=== PATIENT | female | born 1990 | race Caucasian/White ===

== ENCOUNTER 2017-12-06 00:24 | Emergency (ER) | payer BC ==
[2017-12-06] MEDS ORDERED: NACL 0.9% 1000 ML 1,000 ML IV ONE ×2 (00:49→01:52)
[2017-12-06] MEDS ORDERED: ASPIRIN PO ONE (00:49)
[2017-12-06 01:32] LABS: Hemoglobin 11.4 gm/dl (10.1-14.3); Mean Corpuscular HGB Conc 33 % (30-34); Mean Corpuscular Volume 79 fl (79-97); Platelet Count 236 K/mm3 (140-440); Red Blood Count 4.41 M/mm3 (3.65-5.03)
[2017-12-06] MEDS ORDERED: ZOFRAN ONE (01:32)
[2017-12-06] MEDS ORDERED: MORPHINE IV ONE (01:35)
[2017-12-06] MEDS ORDERED: ZOFRAN IV ONE (01:35)
--- NOTE | 2017-12-06 01:38 | Emergency Department Report ---
ED Abdominal Pain HPI - General Chief Complaint: Nausea/Vomiting/Diarrhea Stated Complaint: ABD PAIN Time Seen by Provider: 12/06/17 01:21 Source: patient, EMS Mode of arrival: Wheelchair Limitations: Other - History of Present Illness Initial Comments: Patient is 27 years old female with no significant past medical history. Patient presented to the ER complaining of abdominal pain, diffuse in nature, sharp does not radiate. Patient stated that pain radiated to her chest. Patient stated that she was drinking last night and she was doing a lot of dry heaving's. Pain associated with nausea and vomiting. she also report fever. Patient denied any diarrhea. MD Complaint: abdominal pain Location: diffuse Radiation: none Migration to: no migration Severity: moderate Quality: sharp Improves With: nothing - Related Data Allergies Allergy/AdvReac Type Severity Reaction Status Date / Time oxycodone Allergy Vomiting Verified 12/06/17 00:49 ED Review of Systems ROS: Stated complaint: ABD PAIN Other details as noted in HPI Comment: All other systems reviewed and negative Constitutional: denies: chills, fever Cardiovascular: denies: chest pain, palpitations, dyspnea on exertion Gastrointestinal: abdominal pain, nausea, vomiting. denies: diarrhea, constipation, hematemesis, melena, hematochezia Genitourinary: denies: urgency, dysuria Neurological: denies: headache, weakness, numbness, paresthesias, confusion ED Past Medical Hx - Past Medical History Previous Medical History?: Yes Additional medical history: ovarian cyst. c-diff - Surgical History Past Surgical History?: Yes Hx Cholecystectomy: Yes - Social History Smoking Status: Never Smoker Substance Use Type: None ED Physical Exam - General Limitations: No Limitations, Other General appearance: alert - Head Head exam: Present: atraumatic, normocephalic, normal inspection - Eye Eye exam: Present: normal appearance, PERRL - ENT ENT exam: Present: normal exam, normal orophraynx, mucous membranes dry - Neck Neck exam: Present: normal inspection, full ROM. Absent: tenderness, meningismus, lymphadenopathy, thyromegaly - Respiratory Respiratory exam: Present: normal lung sounds bilaterally. Absent: respiratory distress, wheezes, rales, rhonchi, chest wall tenderness, accessory muscle use, decreased breath sounds, prolonged expiratory - Cardiovascular Cardiovascular Exam: Present: regular rate, normal rhythm, normal heart sounds - GI/Abdominal GI/Abdominal exam: Present: soft, tenderness, normal bowel sounds. Absent: distended, guarding, rebound, rigid, diminished bowel sounds, organomegaly, mass , bruit, pulsatile mass - Extremities Exam Extremities exam: Present: normal inspection, full ROM, normal capillary refill. Absent: tenderness, pedal edema, joint swelling, calf tenderness - Back Exam Back exam: Present: normal inspection, full ROM. Absent: tenderness, CVA tenderness (R), CVA tenderness (L), muscle spasm, paraspinal tenderness, vertebral tenderness, rash noted - Neurological Exam Neurological exam: Present: alert, oriented X3, CN II-XII intact, normal gait, reflexes normal - Skin Skin exam: Present: warm, intact, normal color ED Course Vital Signs 12/06/17 00:42 Temperature 100.5 F H Pulse Rate 95 H Respiratory 18 Rate Blood Pressure 112/83 O2 Sat by Pulse 100 Oximetry - Reevaluation(s) Reevaluation #1: 12/06/17 04:37 I discussed the patient with [facility] to speak with a cardiothoracic surgeon. They stated that they'll call me back. ED Medical Decision Making - Lab Data Result diagrams: 12/06/17 01:00 12/06/17 01:00 - EKG Data -: EKG Interpreted by Ct EKG shows normal: sinus rhythm Rate: normal - EKG Data Interpretation: no acute changes - Radiology Data Radiology results: report reviewed Referring Physician: SUELLEN GUZMAN Patient Name: PEPITO BAJWA Date of : 1990 Sex: Female Report Date: 2017-12-06 Report Status: [place] [address] Cat Scan Report Signed Patient: PEPITO BAJWA MR#: [id number] : 1990 Acct:[id number] Age/Sex: 27 / F ADM Date: 12/06/17 Loc: ED Attending Dr: Ordering Physician: SUELLEN GUZMAN Date of Service: 12/06/17 Procedure(s): CT chest wo con Accession Number(s): [id number] cc: SUELLEN GUZMAN FINAL REPORT PROCEDURE: CT CHEST WO CON TECHNIQUE: Computerized axial tomography of the chest was performed without contrast material. This study is performed without intravenous contrast and the sensitivity for pathology, including neoplasms, adenopathy, abscess, pulmonary embolism and aortic dissection, is reduced. HISTORY: possible pneumothorax COMPARISON: No prior studies are available for comparison. TECHNICAL QUALITY: Satisfactory. FINDINGS: There is pneumomediastinum. Etiology is uncertain. Possible micro perforation of the soft Shahriar or trachea not excluded. Benign spontaneous pneumomediastinum is also considered. The lungs are clear and expanded. There is no infiltrate, effusion, contusion or pneumothorax. The heart size is normal. The thoracic aorta is normal in caliber. There is no mediastinal or hilar lymphadenopathy. The thoracic spine, sternum and ribs are intact. CT of the abdomen and pelvis was reported separately. IMPRESSION: There is pneumomediastinum. Possible micro perforation of the soft Shahriar or trachea not excluded. Benign spontaneous pneumomediastinum is also considered. The lungs are clear and expanded. There is no infiltrate, effusion, contusion or pneumothorax. The heart size is normal. . Transcribed By: [place] Dictated By: TITUS VALADEZ MD Electronically Authenticated By: TITUS VALADEZ MD Signed Date/Time: 12/06/17 0425 Referring Physician: SUELLEN GUZMAN Patient Name: PEPITO BAJWA Date of : 1990 Sex: Female Report Date: 2017-12-06 Report Status: [place] [address] Cat Scan Report Signed Patient: PEPITO BAJWA MR#: [id number] : 1990 Acct:[id number] Age/Sex: 27 / F ADM Date: 12/06/17 Loc: ED Attending Dr: Ordering Physician: SUELLEN GUZMAN Date of Service: 12/06/17 Procedure(s): CT abdomen pelvis w con Accession Number(s): [id number] cc: SUELLEN GUZMAN FINAL REPORT PROCEDURE: CT ABDOMEN PELVIS W CON TECHNIQUE: Computerized axial tomography of the abdomen and pelvis was performed after the IV injection of iodinated nonionic contrast. HISTORY: abdominal pain COMPARISON: No prior studies are available for comparison. FINDINGS: Visualized lower thorax: There is left extrapleural air along the medial basilar aspect of the left lung base. Pneumothorax or pneumomediastinum considered. Further evaluation with CT of the chest recommended.. Liver: Normal size and attenuation. Spleen: Normal size and attenuation. Gallbladder and biliary system: There has been a cholecystectomy. There is pneumobilia.. Pancreas: Normal. Adrenals: Normal. Kidneys: Normal. GI tract: Normal. Lymph nodes and mesentery: Normal. Vasculature: Normal. Bladder: Normal. Reproductive organs: Uterus is unremarkable. There is a 15 millimeter involuting cyst in the right ovary.. Peritoneum: There is moderate free pelvic fluid. There is no free air. There is no abscess or adenopathy.. Musculoskeletal structures: No significant abnormality. Other: None. IMPRESSION: There is left extrapleural air along the medial basilar aspect of the left lung base. Pneumothorax or pneumomediastinum considered. Further evaluation with CT of the chest recommended.. There has been a cholecystectomy. There is pneumobilia.. Uterus is unremarkable. There is a 15 millimeter involuting cyst in the right ovary.. There is moderate free pelvic fluid. There is no free air. There is no abscess or adenopathy.. Dr. Guzman was notified by telephone at 3:45 a.m. Eastern. Transcribed By: CO Dictated By: TITUS VALADEZ MD Electronically Authenticated By: TITUS VALADEZ MD Signed Date/Time: 12/06/17345 DD/ 5 TD/TT: 12/06/17345 DD/ 4 TD/TT: 12/06/17424 - Medical Decision Making Patient is 27 years old female with no significant past medical history. Patient presented to the ER complaining of abdominal pain, diffuse in nature, sharp does not radiate. Patient stated that pain radiated to her chest. Patient stated that she was drinking last night and she was doing a lot of dry heaving's. Pain associated with nausea and vomiting. she also report fever. Patient denied any diarrhea. Patient received normal saline, morphine and Dilaudid of pain and Zofran for vomiting. CT chest showed a pneumomediastinum was possible perforation to esophagus and trachea. I discussed the patient is Dr. Kramer from [facility] who accepted the patient transfer. Patient will be transferred in stable condition. Critical Care Time: Yes Critical care time in (mins) excluding proc time.: 45 Critical care attestation.: If time is entered above; I have spent that time in minutes in the direct care of this critically ill patient, excluding procedure time. ED Disposition Clinical Impression: Chest pain, Abdominal pain, Pneumomediastinum Disposition: DC/TX-70 ANOTHER TYPE HLTHCARE Is pt being admited?: No Condition: Stable Instructions: Chest Pain (ED) Referrals: PRIMARY CARE, [Primary Care Provider] - 3-5 Days
[2017-12-06 01:39] LABS: Mean Corpuscular Hemoglobin 26 pg (28-32)
[2017-12-06 01:49] LABS: Alanine Aminotransferase 17 units/L (7-56); Albumin 5.1 g/dL (3.9-5); BUN/Creatinine Ratio 16; Blood Urea Nitrogen 13 mg/dL (7-17); Calcium 9.9 mg/dL (8.4-10.2); Hemolysis Index 1; Lipase 14 units/L (13-60)
[2017-12-06] MEDS: ZOFRAN IV ONE ×2 (01:50→01:51)
[2017-12-06] MEDS ORDERED: ZOSYN/NS 3.375GM/50ML 3.375 GM/50 ML BAG IV SCH (03:00)
[2017-12-06 03:28] LABS: Band Neutrophils # (Manual) 0.3 K/mm3; Basophils % (Manual) 0 % (0.0-1.8); Eosinophils % (Manual) 0 % (0.0-4.3); Total Cells Counted 100
[2017-12-06 03:29] LABS: Hypochromasia 1+; Platelet Estimate Consistent w Auto
--- NOTE | 2017-12-06 03:47 | Cat Scan Report ---
FINAL REPORT PROCEDURE: CT ABDOMEN PELVIS W CON TECHNIQUE: Computerized axial tomography of the abdomen and pelvis was performed after the IV injection of iodinated nonionic contrast. HISTORY: abdominal pain COMPARISON: No prior studies are available for comparison. FINDINGS: Visualized lower thorax: There is left extrapleural air along the medial basilar aspect of the left lung base. Pneumothorax or pneumomediastinum considered. Further evaluation with CT of the chest recommended.. Liver: Normal size and attenuation. Spleen: Normal size and attenuation. Gallbladder and biliary system: There has been a cholecystectomy. There is pneumobilia.. Pancreas: Normal. Adrenals: Normal. Kidneys: Normal. GI tract: Normal. Lymph nodes and mesentery: Normal. Vasculature: Normal. Bladder: Normal. Reproductive organs: Uterus is unremarkable. There is a 15 millimeter involuting cyst in the right ovary.. Peritoneum: There is moderate free pelvic fluid. There is no free air. There is no abscess or adenopathy.. Musculoskeletal structures: No significant abnormality. Other: None. IMPRESSION: There is left extrapleural air along the medial basilar aspect of the left lung base. Pneumothorax or pneumomediastinum considered. Further evaluation with CT of the chest recommended.. There has been a cholecystectomy. There is pneumobilia.. Uterus is unremarkable. There is a 15 millimeter involuting cyst in the right ovary.. There is moderate free pelvic fluid. There is no free air. There is no abscess or adenopathy.. Dr. Valdivia was notified by telephone at 3:45 a.m. [facility]
[2017-12-06] MEDS ORDERED: DILAUDID IV ONE (04:21)
--- NOTE | 2017-12-06 04:26 | Cat Scan Report ---
FINAL REPORT PROCEDURE: CT CHEST WO CON TECHNIQUE: Computerized axial tomography of the chest was performed without contrast material. This study is performed without intravenous contrast and the sensitivity for pathology, including neoplasms, adenopathy, abscess, pulmonary embolism and aortic dissection, is reduced. HISTORY: possible pneumothorax COMPARISON: No prior studies are available for comparison. TECHNICAL QUALITY: Satisfactory. FINDINGS: There is pneumomediastinum. Etiology is uncertain. Possible micro perforation of the soft Shahriar or trachea not excluded. Benign spontaneous pneumomediastinum is also considered. The lungs are clear and expanded. There is no infiltrate, effusion, contusion or pneumothorax. The heart size is normal. The thoracic aorta is normal in caliber. There is no mediastinal or hilar lymphadenopathy. The thoracic spine, sternum and ribs are intact. CT of the abdomen and pelvis was reported separately. IMPRESSION: There is pneumomediastinum. Possible micro perforation of the soft Shahriar or trachea not excluded. Benign spontaneous pneumomediastinum is also considered. The lungs are clear and expanded. There is no infiltrate, effusion, contusion or pneumothorax. The heart size is normal. .
[2017-12-06] MEDS ORDERED: DILAUDID ONE (04:27)
[2017-12-06 05:49] VITALS: BP 111/65
== END 2017-12-06 06:36 | disposition other institution (70) ==
LOC: ED 00:24
DX: J98.2 Interstitial emphysema (principal); Z88.5 Allergy status to narcotic agent; Z90.49 Acquired absence of other specified parts of digestive tract
CPT/HCPCS: 36415; 71250; 74177; 80053; 83690; 84484; 84703; 85007; 85025; 93005; 93010; 96361; 96365; 96375; 99291; J1170; J2270; J2405; J2543; J7030; Q9967

== ENCOUNTER 2017-12-22 14:47 | Emergency (ER) | payer BC ==
[2017-12-22] MEDS ORDERED: MORPHINE IV ONE (15:39)
[2017-12-22] MEDS: ZOFRAN IV ONE ×2 (15:41→15:44)
[2017-12-22] MEDS ORDERED: NACL 0.9% 1000 ML 1,000 ML IV ONE (15:45)
--- NOTE | 2017-12-22 16:09 | Emergency Department Report ---
HPI - General Chief Complaint: Abdominal Pain Time Seen by Provider: 12/22/17 15:21 - HPI HPI: 27-year-old female presents to the emergency department via EMS from home with complaint of a 2 day history of nausea, vomiting, abdominal and lower chest discomfort. The patient was here about 2 weeks ago for similar symptoms and was found to have a questionable pneumomediastinum with questionable small perforation from the esophagus. At that time she was transferred to [facility] to see the cardiothoracic surgery. She is unable to tell me what transpired after going to [place]. She has a history of ovarian cyst, previous C. difficile, and a previous cholecystectomy. She has not taken anything for her symptoms prior to arrival. ED Past Medical Hx - Past Medical History Additional medical history: ovarian cyst. c-diff - Surgical History Hx Cholecystectomy: Yes - Social History Smoking Status: Current Some Day Smoker Substance Use Type: None - Medications Home Medications: Home Medications Medication Instructions Recorded Confirmed Last Taken Type Metoclopramide [Reglan] 10 mg PO TID PRN #20 tab 12/22/17 Unknown Rx Promethazine [Phenergan] 12.5 mg AZ Q8H PRN #10 supp.rect 12/22/17 Unknown Rx traMADol [Ultram 50 MG tab] 50 mg PO Q6HR PRN #12 tablet 12/22/17 Unknown Rx ED Review of Systems ROS: Stated complaint: ABD PAIN Other details as noted in HPI Comment: All other systems reviewed and negative Constitutional: denies: chills, fever Eyes: denies: eye pain, eye discharge, vision change ENT: denies: ear pain, throat pain Respiratory: denies: cough, shortness of breath, wheezing Cardiovascular: chest pain. denies: palpitations Gastrointestinal: abdominal pain, nausea, vomiting Genitourinary: denies: urgency, dysuria, discharge Musculoskeletal: denies: back pain, joint swelling, arthralgia Skin: denies: rash, lesions Neurological: denies: headache, weakness, paresthesias Physical Exam - Physical Exam Vital Signs: Vital Signs 12/22/17 14:56 Temperature 98.8 F Pulse Rate 96 H Respiratory 20 Rate Blood Pressure 136/74 O2 Sat by Pulse 100 Oximetry ED Course Vital Signs 12/22/17 14:56 Temperature 98.8 F Pulse Rate 96 H Respiratory 20 Rate Blood Pressure 136/74 O2 Sat by Pulse 100 Oximetry ED Medical Decision Making - Lab Data Result diagrams: 12/22/17 15:45 12/22/17 16:10 - EKG Data -: EKG Interpreted by Me EKG shows normal: sinus rhythm, axis, intervals, QRS complexes (Q waves to the septal leads), ST-T waves Rate: normal - EKG Data When compared to previous EKG there are: no significant change Interpretation: unchanged when compared t (12/08/17) - Radiology Data Radiology results: report reviewed, image reviewed interpreted by me: Chest x-ray did not show any pleural effusion, focal consolidation, pneumothorax or obvious pneumonia. This was later confirmed by radiology as to show no signs of pneumomediastinum. Abdominal x-ray shows nonspecific nonobjective bowel gas. EXAM: CT ABDOMEN PELVIS W CON HISTORY: Abd pain TECHNIQUE: Spiral CT scanning of the abdomen and pelvis after the uneventful administration of IV contrast. Multiplanar reformations. PRIORS: 05 December 2017. FINDINGS: Abdomen: Visualized lung bases grossly unremarkable. Mild pneumomediastinum noted previously no longer visualized. Gallbladder surgically absent, with biliary duct prominence and pneumobilia again noted probably postsurgical. Liver without significant abnormality. Spleen without significant abnormality. Pancreas without significant abnormality. Kidneys without significant abnormality. Adrenal glands without significant abnormality. Pelvis: Incomplete or nondistention of hepatic flexure-sigmoid colon, with variable bowel wall and fold thickening, but no significant pericolonic fat stranding. Remainder of visualized bowel grossly unremarkable. Appendix within normal limits. Very small amount of nonspecific, free fluid in the pelvis decreased from comparison and may be physiologic. No discrete abscess. Abdominal aorta non-aneurysmal. Subcentimeter, rounded hyperdensity again noted along the ventral aspect of lower uterine segment may represent small fibroid nonspecific, but stable. Axial skeleton grossly unremarkable. IMPRESSION: 1. Findings which may be due to incomplete or nondistention versus nonspecific postinflammatory change in the transverse-sigmoid colon. Correlate clinically. 2. No other acute findings. Transcribed By: [facility] Dictated By: AROLDO NORTON MD Electronically Authenticated By: AROLDO NORTON MD Signed Date/Time: 12/22/172024 - Medical Decision Making This patient comes in with a 2 day history of nausea, vomiting, abdominal pain with some radiation towards the chest. She has a previous history of having signs of pneumomediastinum with concern for microperforation of the esophagus 2 weeks ago. At that time the patient was sent [facility] where she said she had a barium swallow that did not show any signs of esophageal perforation or involvement and she was discharged home. Today the patient had a chest x-ray that also did not show any signs of pneumomediastinum or any signs of any pleural effusion, pneumonia, pneumothorax, focal consolidation or any other acute process. Abdominal x-ray showed nonspecific nonobstructive bowel gas. Patient's labs were mostly unremarkable and did not show any etiology of her symptoms. CT of the abdomen and pelvis with IV contrast may have shown a very small localized area of inflammation or colitis but otherwise did not show any other acute process. Vital signs stable throughout her ED course including being afebrile. She was given multiple doses of pain and nausea medications as well as IV fluid resuscitation. Eventually she was able to pass an oral challenge and appears safe for discharge home at this time. She will be given a small amount of pain medication and different antiemetics. She was given referrals for primary care and gastroenterology. She says that she has established care with [facility]. She is instructed to return to the emergency Department with any worsening of her symptoms or any acute distress. - Differential Diagnosis gastritis, colitis, diverticulitis, food poisoning Critical Care Time: No Critical care attestation.: If time is entered above; I have spent that time in minutes in the direct care of this critically ill patient, excluding procedure time. ED Disposition Clinical Impression: Abdominal pain Qualifiers: Abdominal location: generalized Qualified Code(s): R10.84 - Generalized abdominal pain Nausea & vomiting Qualifiers: Vomiting type: unspecified Vomiting Intractability: non-intractable Qualified Code(s): R11.2 - Nausea with vomiting, unspecified Disposition: DC-01 TO HOME OR SELFCARE Is pt being admited?: No Condition: Stable Instructions: Acute Nausea and Vomiting (ED), Abdominal Pain (ED) Additional Instructions: Please follow up with a primary care physician in the next few days. I have given you a referral for a local dialysis biomed technician, Dr. Miles, to follow up regarding your recurrent abdominal pains. Return to the emergency Department with any worsening of your symptoms or any acute distress. I have given you a prescription for Reglan for nausea. If you are unable to keep down the Reglan, then I have also written for Phenergan suppositories to be tried. Please return to the emergency department if you are still unable to keep down water or fluids or keep herself hydrated. You have been prescribed some medications that are sedating. Therefore, these medications cannot be mixed with alcohol of any quantity or taken prior to working, driving, or being responsible for children. Prescriptions: Metoclopramide [Reglan] 10 mg PO TID PRN #20 tab PRN Reason: Nausea Promethazine [Phenergan] 12.5 mg AZ Q8H PRN #10 supp.rect PRN Reason: Nausea traMADol [Ultram 50 MG tab] 50 mg PO Q6HR PRN #12 tablet PRN Reason: Pain Referrals: MAXIM ALTAMIRANO MD [Staff Physician] - 2-3 Days PRASANNA MILES MD [Staff Physician] - 2-3 Days Time of Disposition: 20:08
[2017-12-22 16:15] LABS: Basophils # (Auto) 0.1 K/mm3 (0.0-0.1); Basophils % (Auto) 0.9 % (0.0-1.8); Eosinophils # (Auto) 0.1 K/mm3 (0.0-0.4); Eosinophils % (Auto) 0.6 % (0.0-4.3); Hematocrit 34.3 % (30.3-42.9); Lymphocytes # (Auto) 2.2 K/mm3 (1.2-5.4); Lymphocytes % (Auto) 26.5 % (13.4-35.0); Mean Corpuscular HGB Conc 32 % (30-34); Mean Corpuscular Hemoglobin 27 pg (28-32); Mean Corpuscular Volume 82 fl (79-97); Monocytes # (Auto) 0.7 K/mm3 (0.0-0.8); Monocytes % (Auto) 8.1 % (0.0-7.3); Platelet Count 295 K/mm3 (140-440); Red Blood Count 4.17 M/mm3 (3.65-5.03)
[2017-12-22 16:43] LABS: Alanine Aminotransferase 15 units/L (7-56); Albumin 4.4 g/dL (3.9-5); BUN/Creatinine Ratio 18; Blood Urea Nitrogen 14 mg/dL (7-17); Calcium 9.1 mg/dL (8.4-10.2); Hemolysis Index 5
[2017-12-22 17:16] LABS: Bilirubin,Direct < 0.2 mg/dL (0-0.2)
[2017-12-22] MEDS ORDERED: REGLAN IV ONE (17:26)
[2017-12-22 17:48] LABS: Bilirubin,Urine NEG (Negative); Blood,Urine NEG (Negative); Color,Urine Yellow (Yellow); Protein,Urine <15 mg/dL mg/dL (Negative); Urobilinogen,Urine < 2.0 mg/dL (<2.0)
--- NOTE | 2017-12-22 18:34 | XRay Report ---
FINAL REPORT EXAM: XR ABD SERIES W CXR 1V HISTORY: Abd pain, CP TECHNIQUE: Frontal chest x-ray. Supine and upright views of abdomen. PRIORS: None. FINDINGS: Chest: No evidence of acute cardiopulmonary disease. Abdomen: No significant bowel dilatation or abnormal air fluid levels. No apparent pneumoperitoneum. No abnormal calcifications. Osseous structures grossly unremarkable. Surgical clips project over the right upper quadrant. IMPRESSION: 1. Nonobstructive bowel gas pattern.
[2017-12-22] MEDS ORDERED: DILAUDID IV ONE ×2 (18:51→20:36)
[2017-12-22] MEDS ORDERED: ZOFRAN IV ONE (18:52)
[2017-12-22 19:22] VITALS: BP 137/71
--- NOTE | 2017-12-22 20:26 | Cat Scan Report ---
FINAL REPORT EXAM: CT ABDOMEN PELVIS W CON HISTORY: Abd pain TECHNIQUE: Spiral CT scanning of the abdomen and pelvis after the uneventful administration of IV contrast. Multiplanar reformations. PRIORS: 05 December 2017. FINDINGS: Abdomen: Visualized lung bases grossly unremarkable. Mild pneumomediastinum noted previously no longer visualized. Gallbladder surgically absent, with biliary duct prominence and pneumobilia again noted probably postsurgical. Liver without significant abnormality. Spleen without significant abnormality. Pancreas without significant abnormality. Kidneys without significant abnormality. Adrenal glands without significant abnormality. Pelvis: Incomplete or nondistention of hepatic flexure-sigmoid colon, with variable bowel wall and fold thickening, but no significant pericolonic fat stranding. Remainder of visualized bowel grossly unremarkable. Appendix within normal limits. Very small amount of nonspecific, free fluid in the pelvis decreased from comparison and may be physiologic. No discrete abscess. Abdominal aorta non-aneurysmal. Subcentimeter, rounded hyperdensity again noted along the ventral aspect of lower uterine segment may represent small fibroid nonspecific, but stable. Axial skeleton grossly unremarkable. IMPRESSION: 1. Findings which may be due to incomplete or nondistention versus nonspecific postinflammatory change in the transverse-sigmoid colon. Correlate clinically. 2. No other acute findings.
[2017-12-22] MEDS ORDERED: PHENERGAN PR ONE (20:36)
[2017-12-22] MEDS ORDERED: K-DUR PO ONE (20:42)
== END 2017-12-22 21:38 | disposition home or self-care (01) ==
LOC: ED 14:47
DX: R10.84 Generalized abdominal pain (principal); R11.2 Nausea with vomiting, unspecified; Z90.49 Acquired absence of other specified parts of digestive tract; F17.200 Nicotine dependence, unspecified, uncomplicated
CPT/HCPCS: 36415; 74022; 74177; 80048; 80074; 81001; 84484; 84703; 85025; 85379; 93005; 93010; 96361; 96374; 96375; 96376; 99285; J1170; J2270; J2405; J2765; Q9967